=== PATIENT | female | born 1990 | race Caucasian/White ===

== ENCOUNTER 2016-09-29 20:35 | Emergency (ER) | payer SELFPAY ==
[2016-09-29 23:15] VITALS: BP 119/97
== END 2016-09-29 23:15 | disposition left against medical advice (07) ==
LOC: ED 20:35
DX: Z53.21 Procedure and treatment not carried out due to patient leaving prior to being seen by health care provider (principal)

== ENCOUNTER 2016-09-30 10:34 | Emergency (ER) | payer MEDICAID ==
[2016-09-30 11:17] LABS: microscopic required? YES; urine erythrocyte 1+ (NEGATIVE)
[2016-09-30 12:10] VITALS: BP 124/72
== END 2016-09-30 12:10 | disposition home or self-care (01) ==
LOC: ED 10:34
PROVIDERS: Emergency Medicine
DX: O26.891 Other specified pregnancy related conditions, first trimester (principal); R10.2 Pelvic and perineal pain; R82.71 Bacteriuria; Z3A.01 Less than 8 weeks gestation of pregnancy; W18.30XA Fall on same level, unspecified, initial encounter; Y93.89 Activity, other specified; Y99.8 Other external cause status; Y92.89 Other specified places as the place of occurrence of the external cause

== ENCOUNTER 2020-05-11 12:48 | Emergency (ER) | payer BC, SELFPAY ==
[~2020-05-11] VITALS: Ht 152.4 cm; Wt 104.3 kg
[2020-05-11 12:50] VITALS: Ht 152.4 cm; Wt 104.3 kg
[2020-05-11 13:49] VITALS: BP 111/73
== END 2020-05-11 13:49 | disposition home or self-care (01) ==
LOC: ED 12:48
DX: U07.1 COVID-19 (principal); R21 Rash and other nonspecific skin eruption
CPT/HCPCS: Q0162; U0003